=== PATIENT | male | born 1950 | race Caucasian/White ===

== ENCOUNTER → 2016-11-09 | Outpatient (CLI) | payer OTHER ==
--- NOTE | 2016-11-09 11:56 | DI ---
MR ANGIOGRAM OF THE NECK, 11/09/2016 10:53 AM: Clinical History: Near syncope. Previous Exam: None at this facility. Axial 2D TOF and axial 3D images are reconstructed into a 3D MIP format. Scans are performed from below the sternal notch to of the neck to the base of the skull without cont rast. The common carotid arteries are normal from their origins to the bifurcations. The internal and exter nal carotid arteries in the neck region are normal. The internal carotid arteries from the base of th e skull to the cavernous sinuses are also normal. Both vertebral arteries are visualized and are norm al. The vertebral arteries are codominant. READING: Normal MR angiogram of the neck. The carotid and vertebral arteries are intact.
== END ==
LOC: MRI 10:49
PROVIDERS: ATTEND Family Medicine
DX: R55 Syncope and collapse (principal)
CPT/HCPCS: 70547

== ENCOUNTER → 2016-12-08 | Outpatient (CLI) | payer OTHER ==
--- NOTE | 2016-12-08 15:46 | DI ---
History: Chronic back pain Comparison: None Findings: Desiccation of intervertebral discs throughout the lumbar spine. Sclerotic endplate changes most jp re at the levels of L4 and L5. Conus medullaris normal at the level of L1. Cauda equina unremarkable in appearance. T12-L1: No stenosis or foraminal narrowing L1-2: Posterior disc bulge impressing slightly upon the thecal sac. Mild to moderate degenerative jeff nges in facet joints. No stenosis. Minimal bilateral neural foraminal narrowing secondary to degenera tive changes of facet joints L2-3: Posterior disc bulge/osteophyte complex, and moderate degenerative changes in facet joints. Mil d to moderate ligamentous hypertrophy. These changes result in moderate focal spinal stenosis, and mi ld bilateral neural foramina narrowing. L3-4: Posterior disc bulge/osteophyte complex impressing slightly upon the thecal sac. Moderate degen erative changes in facet joints. Mild ligamentous hypertrophy. Mild subsequent focal spinal stenosis, and moderate left and mild right neural foramina narrowing. L4-5: Very mild posterior disc bulge. Moderate to severe degenerative changes in facet joints, and mo derate hypertrophy of posterior ligaments. There is subsequent moderate to severe focal spinal stenos is, and mild bilateral neural foramina narrowing. L5-S1: Posterior disc bulge. Severe degenerative changes in facet joints. There is no focal spinal st enosis, but the hypertrophic degenerative changes in the left facet joint results in moderate to jp re narrowing the left neural foramen Impression: Degenerative disc changes throughout Varying degrees of neural foraminal narrowing and spinal stenosis scattered throughout the lumbar spi ne, secondary to degenerative changes as detailed above. No focal disc herniation
== END ==
LOC: MRI 14:18
PROVIDERS: ATTEND Nurse Practitioner Family
DX: M54.5 Low back pain (principal); G89.29 Other chronic pain; M51.16 Intervertebral disc disorders with radiculopathy, lumbar region
CPT/HCPCS: 72148